=== PATIENT | male | born 1990 | race Caucasian/White ===

== ENCOUNTER 2024-04-15 21:13 | Emergency (ER) | payer MEDICARE, MEDICAID, SELFPAY ==
[2024-04-15 21:29] VITALS: BP 113/61; PULSE 121; RESP 18; TEMP 36.8; O2SAT 97; BMI 19.1
--- NOTE | 2024-04-15 21:29 | ED_ITS ---
HPI - General Adult General Time Seen by Provider: 21:29 Date Seen: 04/15/24 Chief complaint: Skin/Abscess/Foreign Body Stated complaint: Difficulty urinating, infection R leg Time Seen by Provider: 04/15/24 21:16 Source: patient and RN notes reviewed Mode of arrival: ambulatory Limitations: no limitations History of Present Illness HPI narrative: This 33-year-old male is coming in with complaint of infection in his right calf. He was in the [facility], had it treated and cleaned out. He had injected meth more distally in the ankle area, ended up with an infection on the right medial calf after that. He was given Keflex. Looking in his epic chart, has had a history of MRSA but has had 2 subsequent negative nasal swabs. He he notes that he completed the antibiotics, was only a 7 day course. It is still red and tender around the area. He is having no fevers, no night sweats, otherwise feels well. He states he has plans to go to treatment. He is hoping to go to treatment tomorrow. He states he has used fentanyl and meth today. He originally also complained of inability to urinate but was able to urinate just prior to coming back into the ER for triaged, told nursing staff he did not want further evaluation for that. Related Data Allergies Allergy/AdvReac Type Severity Reaction Status Date / Time No Known Drug Allergies Allergy Verified 04/15/24 21:33 Review of Systems Status of ROS: Reports: 6 or more systems reviewed and unremarkable except as noted in History and below PFSH PFSH Social History Smoking Status: Current every day smoker What tobacco products do you use: cigarettes Do you use any of these nicotine containing products: None Second hand tobacco smoke exposure: No How often do you have a drink containing alcohol: monthly or less AUDIT-C Alcohol total score: 1 Non-prescribed substance use: amphetamines/methamphetamines and opiods/painkillers Non-prescribed substance use details: Pt states most recent use has been meth or fentanyl. Used to use oxy downers. service: No Exam Const: Vital Signs, click to edit/add: Vital Signs - 24 hr 04/15/24 21:29 Temperature 98.2 F Pulse Rate [Pulse Oximeter] 121 H Respiratory Rate 18 Blood Pressure [Ri ght Upper Arm] 113/61 Pulse Oximetry 97 Oxygen Delivery Me thod Room Air This 33-year-old male is slender but up ambulatory in the room when I come in. He is alert, interactive, very pleasant with me. Sclera clear, symmetrical facial function, speech is normal when I am in the room with him. Lungs are darrick ar, good air entry, no wheezing or crackles. CV regular rate and rhythm, I do not hear any murmur, normal S1-S2, no S3-S4. He is able to pull up his pant leg, Ca erythematous about 3 cm long and 2 cm wide area on the right upper medial calf. There is a central black eschar, when I press on this there is a little bit of bloody pus that comes out. The erythematous area is indurated but do not feel any fluctuance. I did take some sterile saline and gauze and clean the eschar off, was quite thin. There is a small little superficial cavity that you can see goes into the subcutaneous tissue on that medial thigh. Tissue does not look necrotic. Compressing it reveals no drainage. Culture was obtained from the wound at the beginning. There is no surrounding calf tenderness, no pitting edema of the lower extremity, neurovascular is intact. Documenting provider has reviewed patient's vital signs: yes Course Course ED Course: Patient has normal kidney functions from 2002. Will update a CBC and basic metabolic panel, will insure no blood clot with getting a venous ultrasound. Reevaluation(s) Time of Reevaluation #1: 23:09 Reevaluation #1: Went to talked to patient regarding discharge plan as labs are back now, veinous ultrasound is not been read by Radiology but the cash grain farmer did give me preliminary report of no DVT. Patient is not in his room, his belongings are gone. Staff was unaware that he left, security will check the facility. We will try to contact him via cell phone, do want to start him on Bactrim for his leg. Nursing staff was able to contact him on his phone, he is supposedly out in the parking lot. Will get Bactrim into [facility] for him. I did review UpTo[facility], he does not need IV antibiotics based on his clinical presentation, Bactrim would be recommended for him with his history of MRSA. Vital Signs Vital signs: Initial Vital Signs Temperature 98.2 F 04/15/24 21:29 Temperature Source Temporal Artery Scan 04/15/24 21:29 Pulse Rate 121 H 04/15/24 21:29 Respiratory Rate 18 04/15/24 21:29 Blood Pressure 113/61 04/15/24 21:29 Blood Pressure Mean 78 04/15/24 21:29 Blood Pressure Position Sitting 04/15/24 21:29 Pulse Oximetry 97 04/15/24 21:29 Oxygen Delivery Method Room Air 04/15/24 21:29 Vital Signs Temperature 98.2 F 04/15/24 21:29 Pulse Rate 121 H 04/15/24 21:29 Respiratory Rate 18 04/15/24 21:29 Blood Pressure 113/61 04/15/24 21:29 Pulse Oximetry 97 04/15/24 21:29 Oxygen Delivery Method Room Air 04/15/24 21:29 Temperature 98.2 F 04/15/24 21:29 Pulse Rate 121 H 04/15/24 21:29 Respiratory Rate 18 04/15/24 21:29 Blood Pressure 113/61 04/15/24 21:29 Pulse Oximetry 97 04/15/24 21:29 Oxygen Delivery Method Room Air 04/15/24 21:29 Medical Decision Making Lab Data Lab results reviewed: Yes I reviewed the patient's lab results Labs: Lab Results 04/15/24 Range/Units 22:27 WBC 9.50 (4.50-11.00) K/uL RBC 4.57 (4.30-5.90) m/uL Hgb 13.1 L (13.5-17.5) gm/dL Hct 38.8 (37.0-53.0) % MCV 85 (80-100) fL MCH 29 (26-34) pg MCHC 34 (32-36) gm/dL RDW Coeff of Hermes 12.7 (11.5-15.5) % Plt Count 314 (140-440) K/uL Neut % (Auto) 77.6 H (42.0-72.0) % Lymph % (Auto) 12.8 L (20-44) % Sibley % (Auto) 6.4 (0.0-11.0) % Eos % (Auto) 2.0 (0.0-7.0) % Baso % (Auto) 0.4 (0.0-3.0) % Neut # (Auto) 7.40 H (1.7-7.0) K/uL Lymph # (Auto) 1.20 (0.90-2.90) K/uL Sibley # (Auto) 0.60 (0.00-0.90) K/UL Eos # (Auto) 0.19 (0.00-0.50) K/uL Baso # (Auto) 0.04 (0.00-0.30) K/uL Abs Immat Gran (auto) 0.08 (0.00-0.30) K/uL Imm/Tot Granulo (auto) 0.8 % Sodium 135 (135-149) mmol/L Potassium 3.7 (3.6-5.1) mmol/L Chloride 96 (96-114) mmol/L Carbon Dioxide 27 (20-32) mmol/L Anion Gap 12 (7-15) mEq/L BUN 11 (5-24) mg/dL Creatinine 0.7 (0.5-1.5) mg/dL Estimated Creat Clear 139.63 Estimated GFR 125 ml/min Glucose 97 (60-115) mg/dL Calcium 9.5 (8.4-10.6) mg/dL Imaging Data Venous US: Attestation: I have reviewed the pertinent imaging results. Radiologist's impression: Patient: BRISSA KEENAN Facility:?[facility] Patient ID:?[id number] Site Patient ID:?[id number]. Site :?[id number] Study:?US-Extremity Right LEV-04/15/2024 10:25:51 PM Ordering Physician:?Tee Sidhu Final Report: INDICATION: Right lower extremity swelling. TECHNIQUE: Right lower extremity Doppler venous ultrasound examination was performed. Grayscale and color Doppler images were obtained. COMPARISON: None. FINDINGS: RIGHT LOWER EXTREMITY: Common femoral vein: Fully compressible. No deep vein thrombus. Normal flow and response to augmentation on color Doppler imaging. Superficial femoral vein: Fully compressible. No deep vein thrombus. Normal flow on color Doppler imaging. Deep femoral vein: No deep vein thrombus Popliteal vein: Fully compressible. No deep vein thrombus. Normal flow on color Doppler imaging. Lower calf: The visualized posterior tibial and peroneal veins are fully compressible. No deep vein thrombus. Normal flow and response to augmentation on color Doppler imaging. Superficial veins: The superficial veins, including the greater saphenous vein, remain patent and are fully compressible. Soft tissues: No popliteal fossa fluid collection identified. LEFT LOWER EXTREMITY: Common femoral vein: Fully compressible. No deep vein thrombus. Normal flow and response to augmentation on color Doppler imaging. IMPRESSION: No deep vein thrombus. Unremarkable doppler ultrasound examination of the right lower extremity. Dictated by Israel Galloway MD @ 04/15/2024 11:21:37 PM (Electronic Signature) Discharge Plan Discharge Clinical Impression: Cellulitis Instructions: Cellulitis (ED), Warm Compress or Soak (ED) Additional Instructions: Start Bactrim and take as prescribed, 1 pill twice a day for 10 days. Recommend dressing the wound on your calf with a layer of bacitracin and then a bandage over this. May shower as you normally do. Watch for worsening infection and seek re-evaluation if there are concerns. I highly encourage you to follow through with treatment. We will contact you if there is anything on the wound culture that would necessitate antibiotic change. Activity Level: Activity as Tolerated Follow Up/Referrals: Provider,Not a Local [Primary Care Provider] - Stand Alone Forms: MyHealth Info Instructions
--- NOTE | 2024-04-15 21:43 | CRLHL7_ITS ---
For Patients: As a result of the Century Cures Act, medical imaging exams and procedure reports are released immediately into your electronic medical record. You may view this report before your referring provider. If you have questions, please contact your health care provider. INDICATION: Right lower extremity swelling. TECHNIQUE: Right lower extremity Doppler venous ultrasound examination was performed. Grayscale and color Doppler images were obtained. COMPARISON: None. FINDINGS: RIGHT LOWER EXTREMITY: Common femoral vein: Fully compressible. No deep vein thrombus. Normal flow and response to augmentation on color Doppler imaging. Superficial femoral vein: Fully compressible. No deep vein thrombus. Normal flow on color Doppler imaging. Deep femoral vein: No deep vein thrombus Popliteal vein: Fully compressible. No deep vein thrombus. Normal flow on color Doppler imaging. Lower calf: The visualized posterior tibial and peroneal veins are fully compressible. No deep vein thrombus. Normal flow and response to augmentation on color Doppler imaging. Superficial veins: The superficial veins, including the greater saphenous vein, remain patent and are fully compressible. Soft tissues: No popliteal fossa fluid collection identified. LEFT LOWER EXTREMITY: Common femoral vein: Fully compressible. No deep vein thrombus. Normal flow and response to augmentation on color Doppler imaging. IMPRESSION: No deep vein thrombus. Unremarkable doppler ultrasound examination of the right lower extremity. Dictated by Israel Galloway MD @ 04/15/2024 11:21:37 PM (Electronically Signed)
[2024-04-15 22:43] LABS: Basophils Absolute Auto 0.04 K/uL (0.00-0.30); Basophils Percent Auto 0.4 % (0.0-3.0); Eosinophils Absolute Auto 0.19 K/uL (0.00-0.50); Hematocrit 38.8 % (37.0-53.0); Hemoglobin* 13.1 gm/dL (13.5-17.5); Immature Granulocytes Abs Auto 0.08 K/uL (0.00-0.30); Immature Granulocytes Pct Auto 0.8 %; Lymphocytes Percent Auto 12.8 % (20-44); Mean Corpuscular HGB Conc 34 gm/dL (32-36); Mean Corpuscular Hemoglobin 29 pg (26-34); Mean Corpuscular Volume 85 fL (80-100); Monocytes Percent Auto 6.4 % (0.0-11.0); Neutrophils Percent Auto 77.6 % (42.0-72.0); Platelet Count* 314 K/uL (140-440); RDW Coefficient of Variation % 12.7 % (11.5-15.5); Red Blood Count 4.57 m/uL (4.30-5.90)
[2024-04-15 22:50] LABS: Slide Review Reflex No
[2024-04-15 22:52] LABS: Chloride* 96 mmol/L (96-114); Potassium* 3.7 mmol/L (3.6-5.1); Sodium* 135 mmol/L (135-149)
[2024-04-15 22:55] LABS: Anion Gap 12 mEq/L (7-15); Blood Urea Nitrogen* 11 mg/dL (5-24); Carbon Dioxide* 27 mmol/L (20-32); Creatinine* 0.7 mg/dL (0.5-1.5); Est. Creatinine Clearance* 139.63; Estimated Glomerular Filt Rate 125 ml/min
[2024-04-15 22:56] LABS: Calcium* 9.5 mg/dL (8.4-10.6); Glucose* 97 mg/dL (60-115)
== END 2024-04-15 23:27 | disposition home or self-care (01) ==
PROVIDERS: Emergency Provider Family Medicine
DX: L03.115 Cellulitis of right lower limb (principal); L53.9 Erythematous condition, unspecified; R22.41 Localized swelling, mass and lump, right lower limb; M79.661 Pain in right lower leg
CPT/HCPCS: 36415; 80048; 85025; 87070; 87186; 93971; 99284